=== PATIENT | female | born 2000 | race Hispanic/Latino ===

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

== ENCOUNTER 2019-08-13 13:32 | Emergency (ER) | payer OTHER ==
[2019-08-13] MEDS ORDERED: Ketorolac Tromethamine 30 MG/ML VIAL ONE (16:00)
[2019-08-13 16:24] LABS: Bilirubin Negative (Negative); Blood, Urine Negative (Negative); Clarity Clear (Clear); Glucose, Urine (Dipstick) Normal (Negative); Leukocyte Negative Leu/uL (Negative); Nitrite Negative (Negative); Protein, Urine (Dipstick) Negative (Neg-Trace); Urobilinogen Normal mg/dL (Less than 2)
[2019-08-13 16:26] LABS: Pregnancy Test - Urine (BHCG) Negative (Negative); Pregu Control Background? CLEAR/WHITE (CLR/WHITE); Pregu Control Bar Appear? YES (CONTROL BAR); Specific Gravity 1.012 (1.002-1.036)
== END 2019-08-13 18:13 | disposition home or self-care (01) ==
LOC: ERS 13:32
DX: J02.8 Acute pharyngitis due to other specified organisms (principal)
CPT/HCPCS: 81003; 81025; 87081; 87430; 93005; 96372; J1885

== ENCOUNTER 2019-12-20 18:13 | Emergency (ER) | payer OTHER ==
[2019-12-21 17:09] LABS: SARS-CoV-2 MS2 Positive; SARS-CoV-2 N Gene Negative; SARS-CoV-2 S Gene Negative; SARS-CoV-2 orf1ab Negative
== END 2019-12-20 18:41 | disposition home or self-care (01) ==
LOC: ERS 18:13
DX: Z20.828 Contact with and (suspected) exposure to other viral communicable diseases (principal)
CPT/HCPCS: 87635; 99283; U0003

== ENCOUNTER 2020-04-18 21:06 | Emergency (ER) | payer OTHER ==
[2020-04-18] MEDS ORDERED: Lidocaine 1% PF 5 ML VIAL ONE (22:41)
[2020-04-18] MEDS ORDERED: Boostrix 0.5 ML VIAL ONE (23:16)
== END 2020-04-18 23:37 | disposition home or self-care (01) ==
LOC: ERS 21:06
DX: S01.511A Laceration without foreign body of lip, initial encounter (principal); W26.8XXA Contact with other sharp object(s), not elsewhere classified, initial encounter
CPT/HCPCS: 12011; 90471; 90715

== ENCOUNTER 2020-12-08 21:58 | Emergency (ER) | payer OTHER ==
[2020-12-08] MEDS ORDERED: HYDROcodone/Acetaminophen 10/325 mg Tablet ONE (23:34)
== END 2020-12-08 23:58 | disposition home or self-care (01) ==
LOC: ERS 21:58
DX: S93.402A Sprain of unspecified ligament of left ankle, initial encounter (principal); W19.XXXA Unspecified fall, initial encounter